=== PATIENT | male | born 1985 | race Caucasian/White ===

== ENCOUNTER 2016-09-14 08:29 | Inpatient (IN) | payer OTHER ==
[2016-09-14 09:00] VITALS: BMI 31.6
--- NOTE | 2016-09-14 12:27 | HP ---
COWS - Scale Resting Pulse: 0= [place] 80 or Below Sweatin=Flushed/Facial Moisture Restless Observation: 3= Extraneous Movement Pupil Size: 2= Moderately Dilated Bone or Joint Aches: 2= Severe Diffuse Aches Runny Nose/ Eye Tearin= Runny Nose/Eyes GI Upset > 30mins: 3= Vomiting/Diarrhea Tremor Observation: 2= Slight Tremor Visible Yawning Observation: 2= >3x During Session Anxiety or Irritability: 2=Irritable/Anxious Goose Flesh Skin: 0=Smooth Skin COWS Score: 20 CIWA Score - CIWA Score Nausea/Vomitin Muscle Tremors: 3 Anxiety: 3 Agitation: 3 Paroxysmal Sweats: 2 Orientation: 0-Oriented Tacttile Disturbances: 2-Mild Itch/Numbness/Burn Auditory Disturbances: 2-Mild Harshness/Frighten Visual Disturbances: 2-Mild Sensitivity Headache: 2-Mild CIWA-Ar Total Score: 22 Admission ROS BHS - HPI Chief Complaint: i need help to stop using heroin and xanax Allergies/Adverse Reactions: Allergies Allergy/AdvReac Type Severity Reaction Status Date / Time No Known Allergies Allergy Verified 09/14/16 10:21 History of Present Illness: this 31 years old male with heroin and xanax dependence,withdrawal symptom,last detox 02/01/16 in [place] nicotine dependence longest period sobriety 4 months Exam Limitations: No Limitations - Ebola screening Have you traveled outside of the country in the last 21 days: No Have you had contact with anyone from an Ebola affected area: No Have you been sick,other than usual withdrawal symptoms: No - Review of Systems Constitutional: Chills, Diaphoresis, Loss of Appetite, Malaise, Night Sweats, Changes in sleep, Weakness EENT: reports: Tearing, Nose Congestion Respiratory: reports: No Symptoms reported Cardiac: reports: No Symptoms Reported GI: reports: Diarrhea, Nausea, Vomiting, Abdominal cramping : reports: No Symptoms Reported Musculoskeletal: reports: Back Pain, Joint Pain, Muscle Pain, Joint Stiffness Integumentary: reports: Dryness Neuro: reports: Headache, Tremors Endocrine: reports: No Symptoms Reported Hematology: reports: No Symptoms Reported Psychiatric: reports: No Sypmtoms Reported Other Systems: Reviewed and Negative Patient History - Patient Medical History Hx Anemia: No Hx Asthma: No Hx Chronic Obstructive Pulmonary Disease (COPD): No Hx Cancer: No Hx Cardiac Disorders: No Hx Congestive Heart Failure: No Hx Hypertension: No Hx Pacemaker: No HX Cerebrovascular Accident: No Hx Seizures: No Hx Dementia: No Hx Diabetes: No Hx Gastrointestinal Disorders: No Hx Liver Disease: No Hx Genitourinary Disorders: No Hx Sexually Transmitted Disorders: No Hx Renal Disease (ESRD): No Hx Thyroid Disease: No Hx Human Immunodeficiency Virus (HIV): No (11/02 LAST NEGATIVE) Hx Hepatitis C: No Hx Depression: No Hx Suicide Attempt: No Hx Bipolar Disorder: No Hx Schizophrenia: No Other Medical History: no suicidal,no hmidcidal - Patient Surgical History Past Surgical History: Yes Hx Neurologic Surgery: No Hx Cataract Extraction: No Hx Cardiac Surgery: No Hx Lung Surgery: No Hx Breast Surgery: No Hx Breast Biopsy: No Hx Abdominal Surgery: No Hx Appendectomy: No Hx Cholecystectomy: No Hx Genitourinary Surgery: No Hx Section: No Hx Orthopedic Surgery: No Other Surgical History: COLONOSCOPY FOR LOWER GI BLEEDING 2006 Anesthesia Reaction: No - PPD History Previous Implant?: Yes Documented Results: Negative w/o proof Implanted On Prior [facility] Admission?: No Date: 05/22/15 Results: 0 MM PPD to be Administered?: Yes - Smoking Cessation Smoking history: Current every day smoker Aproximately how many cigarettes per day: 15 Hx Chewing Tobacco Use: No Initiated information on smoking cessation: Yes 'Breaking Loose' booklet given: 09/14/16 - Substance & Tx. History Hx Alcohol Use: No Hx Substance Use: Yes Substance Use Type: Heroin, Tranquilizers Hx Substance Use Treatment: Yes (02/02 in [place]) - Substances Abused Heroin Route: Injection Frequency: Daily Amount used: 10 BAGS Age of first use: 28 Date of Last Use: 09/14/16 Diazepam Route: Oral Frequency: Daily Amount used: 20 MG Age of first use: 27 Date of Last Use: 09/14/16 Family Disease History - Family Disease History Family Disease History: Diabetes: Grandparent, Heart Disease: Father (HTN, ALCOHOLIC,NEPHRECTOMY), [place]: Mother (lung) Admission Physical Exam BHS - Vital Signs Vital Signs: Vital Signs - 24 hr 09/14/16 08:57 Temperature 97.4 F L Pulse Rate 56 L Respiratory 16 Rate Blood Pressure 105/63 - Physical General Appearance: Yes: Moderate Distress, Tremorous, Irritable, Sweating, Anxious HEENTM: Yes: Hearing grossly Normal, Normal ENT Inspection, Nasal Congestion Respiratory: Yes: Lungs Clear, Normal Breath Sounds, No Respiratory Distress Neck: Yes: Within Normal Limits Breast: Yes: Within Normal Limits Cardiology: Yes: Within Normal Limits, Regular Rhythm, Regular Rate, S1, S2 Abdominal: Yes: Within Normal Limits, Normal Bowel Sounds, Non Tender, Flat, Soft Genitourinary: Yes: Within Normal Limits Back: Yes: Muscle Spasm Musculoskeletal: Yes: full range of Motion, Back pain, Joint Stiffness, Muscle Pain Extremities: Yes: Normal Range of Motion, Tremors Neurological: Yes: 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 NML intact, Fully Oriented, Alert, Motor Strength 5/5 Integumentary: Yes: Dry Lymphatic: Yes: Within Normal Limits - Diagnostic (1) Nicotine dependence Current Visit: No Status: Acute Qualifiers: Nicotine product type: cigarettes Substance use status: uncomplicated Qualified Code(s): F17.210 - Nicotine dependence, cigarettes, uncomplicated (2) Opioid dependence with withdrawal Current Visit: No Status: Acute (3) Uncomplicated sedative, hypnotic or anxiolytic withdrawal Current Visit: No Status: Acute Cleared for Admission [facility] - Detox or Rehab [facility] Level of Care: Medically Managed Detox Regimen/Protocol: Methadone/Valium [facility] Breath Alcohol Content Breath Alcohol Content: 0 Urine Drug Screen - Results Drug Screen Negative: No Urine Drug Screen Results: OPI-Opiates, BZO-Benzodiazepines, MTD-Methadone, OXY- Oxycodone
[2016-09-14] MEDS ORDERED: MAGNESIUM HYDROX 2400MG/30ML ORAL SUSPENSION 30 ML CUP PO PRN (12:37)
[2016-09-14] MEDS ORDERED: MAG HYDROX/AL HYDROX/SIMETH 30 ML UNIT-DOSE CUP PO PRN (12:37)
[2016-09-14] MEDS ORDERED: MAGNESIUM CITRATE 300 ML BOTTLE PO PRN (12:37)
[2016-09-14] MEDS ORDERED: P-EPHED 60MG/TRIPROLIDI 2.5MG TABLET PO PRN (12:37)
[2016-09-14] MEDS ORDERED: guaiFENesin/D-METHORPHAN HB 10 ML UNIT-DOSE CUPS PO PRN (12:37)
[2016-09-14] MEDS ORDERED: LOPERAMIDE HCL 2 MG CAPSULE PO PRN (12:37)
[2016-09-14] MEDS ORDERED: hydrOXYzine PAMOATE 50 MG CAPSULE (FP) PO PRN (12:37)
[2016-09-14] MEDS ORDERED: IBUPROFEN 400 MG TABLET (FP) PO PRN (12:37)
[2016-09-14] MEDS ORDERED: ACETAMINOPHEN 325 MG TABLET (FP) PO PRN (12:37)
[2016-09-14] MEDS ORDERED: MENTHOL/PHENOL 1 EACH UD MM PRN (12:37)
[2016-09-14] MEDS ORDERED: NICOTINE POLACRILEX 2 MG GUM BUC PRN (12:37)
[2016-09-14] MEDS ORDERED: diazePAM 5 MG TABLET PO ONE (12:44)
[2016-09-14] MEDS ORDERED: METHADONE HCL 10 MG TABLET (FOR DETOX USE ONLY) PO ONE ×2 (12:46→23:00)
[2016-09-14] MEDS: NICOTINE 21 MG/24 HOURS TOPICAL PATCH TD SCH (13:53)
[2016-09-14] MEDS: CYCLOBENZAPRINE HCL 10 MG TABLET (FP) PO PRN (13:54)
[2016-09-14] MEDS: diazePAM 5 MG TABLET PO SCH ×2 (14:28→22:31)
[2016-09-14] MEDS: diazePAM 5 MG TABLET PO PRN (16:37)
[2016-09-14 16:59] LABS: URINE APPEARANCE CLEAR; URINE BILIRUBIN NEGATIVE (NEGATIVE); URINE BLOOD NEGATIVE (NEGATIVE); URINE COLOR YELLOW; URINE GLUCOSE (UA) NEGATIVE (NEGATIVE); URINE KETONE NEGATIVE (NEGATIVE); URINE LEUK ESTERASE NEGATIVE (NEGATIVE); URINE NITRITE NEGATIVE (NEGATIVE); URINE PROTEIN NEGATIVE (NEGATIVE); URINE UROBILINOGEN NEGATIVE E.U./dl (0.2-1.0)
[2016-09-14] MEDS: THIAMINE HCL 100 MG TABLET (FP) PO SCH (22:30)
[2016-09-14] MEDS: cloNIDine HCL 0.1 MG TABLET PO SCH (22:31)
[2016-09-15] MEDS: diazePAM 5 MG TABLET PO SCH ×3 (05:19→22:37)
[2016-09-15] MEDS: CYCLOBENZAPRINE HCL 10 MG TABLET (FP) PO PRN (05:19)
[2016-09-15] MEDS: diazePAM 5 MG TABLET PO PRN ×3 (08:49→23:51)
[2016-09-15] MEDS ORDERED: METHADONE HCL 10 MG TABLET (FOR DETOX USE ONLY) PO SCH (10:00)
[2016-09-15 10:06] LABS: HIV 1 & 2 AB NEGATIVE; HIV 1 AGp24 NEGATIVE
[2016-09-15] MEDS: NICOTINE 21 MG/24 HOURS TOPICAL PATCH TD SCH (10:44)
[2016-09-15] MEDS: cloNIDine HCL 0.1 MG TABLET PO SCH ×2 (10:44→22:36)
[2016-09-15] MEDS: PRENATAL VITAMINS W/ FOLIC ACID TABLET (FP) PO SCH (10:44)
[2016-09-15 11:13] LABS: ALBUMIN 4.2 g/dl (3.4-5.0); ANION GAP 9 (8-16); CALCIUM 9.2 mg/dL (8.5-10.1); CO2 31 mmol/L (21-32); GLUCOSE,RANDOM 110 mg/dL (74-106); MCH 30.2 pg (25.7-33.7); MCHC 34.4 g/dl (32.0-35.9); MEAN CELL VOLUME 87.8 fl (80-96); MEAN PLT VOLUME 8.3 fl (7.5-11.1); PLATELET COUNT 138 K/MM3 (134-434); WHITE BLOOD COUNT 5.4 K/mm3 (4.0-10.0)
[2016-09-15 11:17] LABS: ALK PHOS 68 U/L (45-117); BILIRUBIN,TOTAL 0.7 mg/dL (0.2-1.0); COCKROFT - GAULT 122.45; CREATININE 1.2 mg/dL (0.7-1.3); SGOT/AST 28 U/L (15-37); SGPT/ALT 35 U/L (12-78); TOT PROT 7.1 g/dl (6.4-8.2)
--- NOTE | 2016-09-15 11:26 | EKG ---
Test Reason : Blood Pressure : / mmHG Vent. Rate : 052 BPM Atrial Rate : 052 BPM P-R Int : 174 ms QRS Dur : 086 ms QT Int : 432 ms P-R-T Axes : 032 -08 021 degrees QTc Int : 401 ms SINUS BRADYCARDIA WITH SINUS ARRHYTHMIA OTHERWISE NORMAL ECG NO PREVIOUS ECGS AVAILABLE Confirmed by RUDOLPH STACK, VENITA ([id number]) on 09/15/2016 11:25:50 AM Referred By: Moody Yancey Confirmed By:VENITA GALDAMEZ MD
--- NOTE | 2016-09-15 16:16 | PN ---
S CIWA - CIWA Score Nausea/Vomitin Muscle Tremors: 4-Moderate,w/Arms Extend Anxiety: 4-Mod. Anxious/Guarded Agitation: 1-Slight > Activity Paroxysmal Sweats: 3 Orientation: 0-Oriented Tacttile Disturbances: 0-None Auditory Disturbances: 1-Very Mild Visual Disturbances: 2-Mild Sensitivity Headache: 0-None Present CIWA-Ar Total Score: 18 S COWS - Scale Resting Pulse: 0= [place] 80 or Below Sweatin= Chills/Flushing Restless Observation: 1= Difficult to Sit Still Pupil Size: 0= Normal to Room Light Bone or Joint Aches: 2= Severe Diffuse Aches Runny Nose/ Eye Tearin= Runny Nose/Eyes GI Upset > 30mins: 1= Stomach Cramp Tremor Observation of Outstretched Hands: 2= Slight Tremor Visible Yawning Observation: 2= >3x During Session Anxiety or Irritability: 2=Irritable/Anxious Goose Flesh Skin: 0=Smooth Skin COWS Score: 13 S Progress Note (SOAP) Subjective: Stomach Cramping, Sweating, Body aches. Objective: PT. A & O X 3. 09/15/16 16:15 Vital Signs Temperature 96.0 F L 09/15/16 13:51 Pulse Rate 61 09/15/16 13:51 Respiratory Rate 18 09/15/16 13:51 Blood Pressure 97/66 09/15/16 13:51 O2 Sat by Pulse Oximetry (%) Laboratory Last Values WBC 5.4 K/mm3 (4.0-10.0) 09/15/16 06:05 RBC 4.70 M/mm3 (4.00-5.60) 09/15/16 06:05 Hgb 14.2 GM/dL (11.7-16.9) 09/15/16 06:05 Hct 41.2 % (35.4-49) 09/15/16 06:05 MCV 87.8 fl (80-96) 09/15/16 06:05 MCHC 34.4 g/dl (32.0-35.9) 09/15/16 06:05 RDW 13.0 % (11.9-15.9) 09/15/16 06:05 Plt Count 138 K/MM3 (134-434) 09/15/16 06:05 MPV 8.3 fl (7.5-11.1) 09/15/16 06:05 Sodium 139 mmol/L (136-145) 09/15/16 06:05 Potassium 4.3 mmol/L (3.5-5.1) 09/15/16 06:05 Chloride 99 mmol/L (98-107) 09/15/16 06:05 Carbon Dioxide 31 mmol/L (21-32) 09/15/16 06:05 Anion Gap 9 (8-16) 09/15/16 06:05 BUN 24 mg/dL (7-18) H D 09/15/16 06:05 Creatinine 1.2 mg/dL (0.7-1.3) 09/15/16 06:05 Creat Clearance w eGFR > 60 (>60) 09/15/16 06:05 Random Glucose 110 mg/dL (74-106) H D 09/15/16 06:05 Calcium 9.2 mg/dL (8.5-10.1) 09/15/16 06:05 Total Bilirubin 0.7 mg/dL (0.2-1.0) 09/15/16 06:05 AST 28 U/L (15-37) D 09/15/16 06:05 ALT 35 U/L (12-78) D 09/15/16 06:05 Alkaline Phosphatase 68 U/L (45-117) 09/15/16 06:05 Total Protein 7.1 g/dl (6.4-8.2) 09/15/16 06:05 Albumin 4.2 g/dl (3.4-5.0) 09/15/16 06:05 Urine Color Yellow 09/14/16 14:00 Urine Appearance Clear 09/14/16 14:00 Urine pH 6.0 (5.0-8.0) D 09/14/16 14:00 Ur Specific [place] 1.023 (1.001-1.035) 09/14/16 14:00 Urine Protein Negative (NEGATIVE) 09/14/16 14:00 Urine Glucose (UA) Negative (NEGATIVE) 09/14/16 14:00 Urine Ketones Negative (NEGATIVE) 09/14/16 14:00 Urine Blood Negative (NEGATIVE) 09/14/16 14:00 Urine Nitrite Negative (NEGATIVE) 09/14/16 14:00 Urine Bilirubin Negative (NEGATIVE) 09/14/16 14:00 Urine Urobilinogen Negative E.U./dl (0.2-1.0) 09/14/16 14:00 Ur Leukocyte Esterase Negative (NEGATIVE) 09/14/16 14:00 RPR Titer Nonreactive (NONREACTIVE) 09/15/16 06:05 Hepatitis C Antibody 0.1 s/co ratio (0.0-0.9) 09/14/16 12:00 HIV 1&2 Antibody Screen Negative 09/14/16 10:30 HIV P24 Antigen Negative 09/14/16 10:30 LABS NOTED. Assessment: 09/15/16 16:15 WITHDRAWAL SYMPTOMS. Plan: CONTINUE DETOX. ADVISED PATIENT TO FOLLOW-UP WITH STUDENT SUCCESS COUNSELOR / REHAB MEDICAL PROVIDER AFTER DISCHARGE FROM DETOX FOR GENERAL MEDICAL ASSESSMENT AND FOR ABNORMAL ADMISSION LAB VALUES.
[2016-09-15] MEDS: THIAMINE HCL 100 MG TABLET (FP) PO SCH (22:36)
[2016-09-15] MEDS: diphenhydrAMINE HCL 50 MG CAPSULE PO PRN (22:37)
[2016-09-16] MEDS: diazePAM 5 MG TABLET PO PRN ×3 (05:38→17:57)
[2016-09-16] MEDS: CYCLOBENZAPRINE HCL 10 MG TABLET (FP) PO PRN (05:38)
[2016-09-16] MEDS ORDERED: METHADONE HCL 5 MG TABLET (FOR DETOX USE ONLY) PO SCH (10:00)
[2016-09-16] MEDS: diazePAM 5 MG TABLET PO SCH ×2 (10:31→22:40)
[2016-09-16] MEDS: cloNIDine HCL 0.1 MG TABLET PO SCH ×2 (10:31→22:39)
[2016-09-16] MEDS: PRENATAL VITAMINS W/ FOLIC ACID TABLET (FP) PO SCH (10:31)
[2016-09-16] MEDS: NICOTINE 21 MG/24 HOURS TOPICAL PATCH TD SCH (10:31)
--- NOTE | 2016-09-16 15:41 | PN ---
S CIWA - CIWA Score Nausea/Vomitin Muscle Tremors: 4-Moderate,w/Arms Extend Anxiety: 4-Mod. Anxious/Guarded Agitation: 2 Paroxysmal Sweats: No Perspiration Orientation: 0-Oriented Tacttile Disturbances: 1-Very Mild Itch/Numbness Auditory Disturbances: 0-None Visual Disturbances: 0-None Headache: 2-Mild CIWA-Ar Total Score: 16 BHS COWS - Scale Resting Pulse: 0= [place] 80 or Below Sweatin=Flushed/Facial Moisture Restless Observation: 3= Extraneous Movement Pupil Size: 0= Normal to Room Light Bone or Joint Aches: 2= Severe Diffuse Aches Runny Nose/ Eye Tearin= Runny Nose/Eyes GI Upset > 30mins: 1= Stomach Cramp Tremor Observation of Outstretched Hands: 2= Slight Tremor Visible Yawning Observation: 0= None Anxiety or Irritability: 2=Irritable/Anxious Goose Flesh Skin: 0=Smooth Skin COWS Score: 14 BHS Progress Note (SOAP) Subjective: Anxious, sweating, chills, tremor, aching in legs Objective: 09/16/16 15:39 Last Vital Signs Temp Pulse Resp BP Pulse Ox 98.1 F 69 19 110/73 09/16/16 13:21 09/16/16 13:21 09/16/16 13:21 09/16/16 13:21 Laboratory Tests 09/14/16 09/14/16 09/14/16 10:30 12:00 14:00 WBC RBC Hgb Hct MCV MCHC RDW Plt Count MPV Sodium Potassium Chloride Carbon Dioxide Anion Gap BUN Creatinine Creat Clearance w eGFR Random Glucose Calcium Total Bilirubin AST ALT Alkaline Phosphatase Total Protein Albumin Urine Color Yellow Urine Appearance Clear Urine pH 6.0 D Ur Specific [place] 1.023 Urine Protein Negative Urine Glucose (UA) Negative Urine Ketones Negative Urine Blood Negative Urine Nitrite Negative Urine Bilirubin Negative Urine Urobilinogen Negative Ur Leukocyte Esterase Negative RPR Titer Hepatitis C Antibody 0.1 HIV 1&2 Antibody Screen Negative HIV P24 Antigen Negative 09/15/16 09/15/16 09/15/16 06:05 06:05 06:05 WBC 5.4 RBC 4.70 Hgb 14.2 Hct 41.2 MCV 87.8 MCHC 34.4 RDW 13.0 Plt Count 138 MPV 8.3 Sodium 139 Potassium 4.3 Chloride 99 Carbon Dioxide 31 Anion Gap 9 BUN 24 H D Creatinine 1.2 Creat Clearance w eGFR > 60 Random Glucose 110 H D Calcium 9.2 Total Bilirubin 0.7 AST 28 D ALT 35 D Alkaline Phosphatase 68 Total Protein 7.1 Albumin 4.2 Urine Color Urine Appearance Urine pH Ur Specific [place] Urine Protein Urine Glucose (UA) Urine Ketones Urine Blood Urine Nitrite Urine Bilirubin Urine Urobilinogen Ur Leukocyte Esterase RPR Titer Nonreactive Hepatitis C Antibody HIV 1&2 Antibody Screen HIV P24 Antigen Labs noted: BUN 24 Assessment: 09/16/16 15:40 Withdrawal symptoms Noted with azotemia Plan: Continue detox Azotemia: encouraged to drink lots of water
[2016-09-16] MEDS: THIAMINE HCL 100 MG TABLET (FP) PO SCH (22:39)
[2016-09-16] MEDS: diphenhydrAMINE HCL 50 MG CAPSULE PO PRN (22:39)
[2016-09-17] MEDS: diazePAM 5 MG TABLET PO PRN (05:50)
[2016-09-17] MEDS: CYCLOBENZAPRINE HCL 10 MG TABLET (FP) PO PRN (05:50)
[2016-09-17 06:49] VITALS: BP 95/70; PULSE 69; TEMP 95.2
--- NOTE | 2016-09-17 12:55 | DS ---
[facility] Detox Discharge Summary Admission Date: 09/14/16 Discharge Date: 09/17/16 - History Present History: Opioid Dependence, Sedative Dependence Pertinent Past History: Denies - Physical Exam Results Vital Signs: Vital Signs Temperature 95.2 F L 09/17/16 06:49 Pulse Rate 69 09/17/16 06:49 Respiratory Rate 16 09/17/16 06:49 Blood Pressure 95/70 09/17/16 06:49 O2 Sat by Pulse Oximetry (%) Pertinent Admission Physical Exam Findings: Withdrawal sx. Laboratory Tests 09/14/16 09/14/16 09/14/16 10:30 12:00 14:00 WBC RBC Hgb Hct MCV MCHC RDW Plt Count MPV Sodium Potassium Chloride Carbon Dioxide Anion Gap BUN Creatinine Creat Clearance w eGFR Random Glucose Calcium Total Bilirubin AST ALT Alkaline Phosphatase Total Protein Albumin Urine Color Yellow Urine Appearance Clear Urine pH 6.0 D Ur Specific [place] 1.023 Urine Protein Negative Urine Glucose (UA) Negative Urine Ketones Negative Urine Blood Negative Urine Nitrite Negative Urine Bilirubin Negative Urine Urobilinogen Negative Ur Leukocyte Esterase Negative RPR Titer Hepatitis C Antibody 0.1 HIV 1&2 Antibody Screen Negative HIV P24 Antigen Negative 09/15/16 09/15/16 09/15/16 06:05 06:05 06:05 WBC 5.4 RBC 4.70 Hgb 14.2 Hct 41.2 MCV 87.8 MCHC 34.4 RDW 13.0 Plt Count 138 MPV 8.3 Sodium 139 Potassium 4.3 Chloride 99 Carbon Dioxide 31 Anion Gap 9 BUN 24 H D Creatinine 1.2 Creat Clearance w eGFR > 60 Random Glucose 110 H D Calcium 9.2 Total Bilirubin 0.7 AST 28 D ALT 35 D Alkaline Phosphatase 68 Total Protein 7.1 Albumin 4.2 Urine Color Urine Appearance Urine pH Ur Specific [place] Urine Protein Urine Glucose (UA) Urine Ketones Urine Blood Urine Nitrite Urine Bilirubin Urine Urobilinogen Ur Leukocyte Esterase RPR Titer Nonreactive Hepatitis C Antibody HIV 1&2 Antibody Screen HIV P24 Antigen labs noted - Treatment Patient has Accepted a Rehab Referral to: [facility] meetings - Medication Discharge Medications: Ambulatory Orders NK [No Known Home Medication] 05/20/15 - Diagnosis (1) Nicotine dependence Status: Acute Qualifiers: Nicotine product type: cigarettes Substance use status: uncomplicated Qualified Code(s): F17.210 - Nicotine dependence, cigarettes, uncomplicated (2) Opioid dependence with withdrawal Status: Acute (3) Uncomplicated sedative, hypnotic or anxiolytic withdrawal Status: Acute - AMA Did Patient Leave Against Medical Advice: Yes
[2016-09-18] MEDS ORDERED: METHADONE HCL 10 MG TABLET (FOR DETOX USE ONLY) PO SCH (10:00)
[2016-09-18] MEDS ORDERED: diazePAM 5 MG TABLET PO SCH (10:00)
[2016-09-19] MEDS ORDERED: METHADONE HCL 5 MG TABLET (FOR DETOX USE ONLY) PO SCH (06:00)
== END 2016-09-17 09:10 | disposition left against medical advice (07) | DRG 894 ==
LOC: YASAS 08:29 → Y3N 12:04
PROVIDERS: ADMIT Internal Medicine; ATTEND Internal Medicine
PROC: HZ2ZZZZ Detoxification Services for Substance Abuse Treatment (ICD-10-PCS; principal; 2016-09-17)
DX: F11.23 Opioid dependence with withdrawal (principal); F13.230 Sedative, hypnotic or anxiolytic dependence with withdrawal, uncomplicated; F17.210 Nicotine dependence, cigarettes, uncomplicated
CPT/HCPCS: 36415; 80053; 81003; 85027; 86593; 87389; 93005; 93010

== ENCOUNTER 2018-07-08 08:35 | Inpatient (IN) | payer OTHER ==
[2018-07-08 09:00] VITALS: BMI 30.4
--- NOTE | 2018-07-08 09:01 | HP ---
COWS - Scale Resting Pulse: 0= [place] 80 or Below Sweatin= Chills/Flushing Restless Observation: 3= Extraneous Movement Pupil Size: 1= Pupils >than Normal Bone or Joint Aches: 2= Severe Diffuse Aches Runny Nose/ Eye Tearin= Runny Nose/Eyes GI Upset > 30mins: 2= Nausea/Diarrhea Tremor Observation: 2= Slight Tremor Visible Yawning Observation: 1= 1-2x During Session Anxiety or Irritability: 2=Irritable/Anxious Goose Flesh Skin: 0=Smooth Skin COWS Score: 16 CIWA Score Nausea/Vomitin Muscle Tremors: 3 Anxiety: 3 Agitation: 2 Paroxysmal Sweats: 1-Minimal Palms Moist Orientation: 0-Oriented Tacttile Disturbances: 1-Very Mild Itch/Numbness Auditory Disturbances: 1-Very Mild Visual Disturbances: 0-None Headache: 2-Mild CIWA-Ar Total Score: 15 - Admission Criteria [facility] Guidelines: Admission for Medically Managed Detox: Requires at least one of the followin. CIWA greater than 12 2. Seizures within the past 24 hours 3. Delirium tremens within the past 24 hours 4. Hallucinations within the past 24 hours 5. Acute intervention needed for co occurring medical disorder 6. Acute intervention needed for co occurring psychiatric disorder 7. Severe withdrawal that cannot be handled at a lower level of care (continued vomiting, continued diarrhea, abnormal vital signs) requiring intravenous medication and/or fluids 8. Patient presents the following: CIWA greater than 12 Admission Criteria Met: Admission criteria met Admission ROS S - [facility] Chief Complaint: i need help to stop using heroin and xanax Allergies/Adverse Reactions: Allergies Allergy/AdvReac Type Severity Reaction Status Date / Time No Known Allergies Allergy Verified 07/08/18 09:40 History of Present Illness: this 33 years old male with heroin and xanax dependence seeking detox, withdrawal symptom,last treatment in [place] in 10.18 multiple admissions several times in detox and rehab nicotine dependence weight loss longest period of sobriety 6 months Exam Limitations: No Limitations - Ebola screening Have you traveled outside of the country in the last 21 days: No Have you had contact with anyone from an Ebola affected area: No Do you have a fever: No - Review of Systems Constitutional: Chills, Loss of Appetite, Malaise, Night Sweats, Changes in sleep, Weakness, Unintentional Wgt. Loss EENT: reports: Tearing, Nose Congestion Respiratory: reports: No Symptoms reported Cardiac: reports: No Symptoms Reported GI: reports: Diarrhea, Nausea, Abdominal cramping : reports: No Symptoms Reported Musculoskeletal: reports: Back Pain, Joint Pain, Muscle Pain, Neck Pain Integumentary: reports: Dryness Neuro: reports: Headache, Tremors Endocrine: reports: No Symptoms Reported Hematology: reports: No Symptoms Reported Psychiatric: reports: No Sypmtoms Reported, Judgement Intact, Mood/Affect Appropiate, Orientated x3 Other Systems: Reviewed and Negative Patient History - Patient Medical History Hx Anemia: No Hx Asthma: No Hx Chronic Obstructive Pulmonary Disease (COPD): No Hx Cancer: No Hx Cardiac Disorders: No Hx Congestive Heart Failure: No Hx Hypertension: No Hx Pacemaker: No HX Cerebrovascular Accident: No Hx Seizures: No Hx Dementia: No Hx Diabetes: No Hx Gastrointestinal Disorders: No Hx Liver Disease: No Hx Genitourinary Disorders: No Hx Sexually Transmitted Disorders: No Hx Renal Disease (ESRD): No Hx Thyroid Disease: No Hx Human Immunodeficiency Virus (HIV): No (01/04 negtive) Hx Hepatitis C: No Hx Depression: No Hx Suicide Attempt: No Hx Bipolar Disorder: No Hx Schizophrenia: No Other Medical History: no suicidal,no homicidal - Patient Surgical History Past Surgical History: Yes Hx Neurologic Surgery: No Hx Cataract Extraction: No Hx Cardiac Surgery: No Hx Lung Surgery: No Hx Breast Surgery: No Hx Breast Biopsy: No Hx Abdominal Surgery: No Hx Appendectomy: No Hx Cholecystectomy: No Hx Genitourinary Surgery: No Hx Section: No Hx Orthopedic Surgery: No Other Surgical History: COLONOSCOPY FOR LOWER GI BLEEDING 2006 Anesthesia Reaction: No - PPD History Previous Implant?: Yes Documented Results: Negative w/o proof Date: 09/16/16 Results: 0 MM PPD to be Administered?: Yes - Smoking Cessation Smoking history: Current every day smoker Have you smoked in the past 12 months: Yes Aproximately how many cigarettes per day: 10 Hx Chewing Tobacco Use: No Initiated information on smoking cessation: Yes 'Breaking Loose' booklet given: 07/08/18 - Substance & Tx. History Hx Alcohol Use: No Hx Substance Use: Yes Substance Use Type: Heroin, Tranquilizers Hx Substance Use Treatment: Yes (in [place] in 03/06) - Substances Abused Heroin Route: Injection Frequency: Daily Amount used: 5 bags Age of first use: 28 Date of Last Use: 07/08/18 Alprazolam (Xanax) Route: Oral Frequency: 3-6 times per week Amount used: 4 mgs Age of first use: 25 Date of Last Use: 07/06/18 Family Disease History - Family Disease History Family Disease History: Diabetes: Grandparent, Heart Disease: Father (HTN, ALCOHOLIC,NEPHRECTOMY), [place]: Mother (lung) Admission Physical Exam [facility] - Vital Signs Vital Signs: Vital Signs Temperature 97 F L 07/08/18 08:58 Pulse Rate 70 07/08/18 08:58 Respiratory Rate 17 07/08/18 08:58 Blood Pressure 107/67 07/08/18 08:58 O2 Sat by Pulse Oximetry (%) - Physical General Appearance: Yes: Moderate Distress, Tremorous, Irritable, Sweating, Anxious HEENTM: Yes: Normal ENT Inspection, ROHAN, Pharynx Normal Respiratory: Yes: Lungs Clear, Normal Breath Sounds, No Respiratory Distress Neck: Yes: Within Normal Limits, Supple, Trachea in good position Breast: Yes: Within Normal Limits Cardiology: Yes: Within Normal Limits, Regular Rhythm, Regular Rate, S1, S2 Abdominal: Yes: Within Normal Limits, Normal Bowel Sounds, Non Tender, Soft Genitourinary: Yes: Within Normal Limits Back: Yes: Normal Inspection, Muscle Spasm Musculoskeletal: Yes: full range of Motion, Back pain, Muscle Pain Extremities: Yes: Within Normal Limits, Tremors 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, Fully Oriented, Alert, Motor Strength 5/5 Integumentary: Yes: Dry, Track Dowell - Diagnostic (1) Opioid dependence with withdrawal Current Visit: No Status: Acute (2) Nicotine dependence Current Visit: No Status: Acute Qualifiers: Nicotine product type: cigarettes Substance use status: uncomplicated Qualified Code(s): F17.210 - Nicotine dependence, cigarettes, uncomplicated (3) Uncomplicated sedative, hypnotic or anxiolytic withdrawal Current Visit: No Status: Acute (4) Weight loss Current Visit: Yes Status: Acute (5) IVDU (intravenous drug user) Current Visit: Yes Status: Acute Cleared for Admission S - Detox or Rehab S Level of Care: Medically Managed Detox Regimen/Protocol: Methadone/Valium S Breath Alcohol Content Breath Alcohol Content: 0 Inpatient Rehab Admission - Rehab Decision to Admit Inpatient rehab admission?: No
[2018-07-08] MEDS ORDERED: P-EPHED 60MG/TRIPROLIDI 2.5MG TABLET PO PRN (09:17)
[2018-07-08] MEDS ORDERED: MAGNESIUM CITRATE 300 ML BOTTLE PO PRN (09:17)
[2018-07-08] MEDS ORDERED: MAG HYDROX/AL HYDROX/SIMETH 30 ML UNIT-DOSE CUP PO PRN (09:17)
[2018-07-08] MEDS ORDERED: hydrOXYzine PAMOATE 50 MG CAPSULE (FP) PO PRN (09:17)
[2018-07-08] MEDS ORDERED: MAGNESIUM HYDROX 2400MG/30ML ORAL SUSPENSION 30 ML CUP PO PRN (09:17)
[2018-07-08] MEDS ORDERED: guaiFENesin/D-METHORPHAN HB 10 ML UNIT-DOSE CUPS PO PRN (09:17)
[2018-07-08] MEDS ORDERED: MENTHOL/PHENOL 1 EACH UD MM PRN (09:17)
[2018-07-08] MEDS ORDERED: NICOTINE POLACRILEX 2 MG GUM BC PRN (09:17)
[2018-07-08] MEDS ORDERED: LOPERAMIDE HCL 2 MG CAPSULE PO PRN (09:17)
[2018-07-08] MEDS ORDERED: ACETAMINOPHEN 325 MG TABLET (FP) PO PRN (09:17)
[2018-07-08] MEDS ORDERED: IBUPROFEN 400 MG TABLET (FP) PO PRN (09:17)
[2018-07-08] MEDS ORDERED: CYCLOBENZAPRINE HCL 10 MG TABLET (FP) PO PRN (09:19)
[2018-07-08] MEDS ORDERED: diazePAM 5 MG TABLET PO ONE (10:45)
[2018-07-08] MEDS ORDERED: METHADONE HCL 10 MG TABLET (FOR DETOX USE ONLY) PO ONE ×2 (10:45→23:00)
[2018-07-08] MEDS: cloNIDine HCL 0.1 MG TABLET PO SCH ×2 (11:00→22:08)
[2018-07-08] MEDS: PRENATAL VITAMINS W/ FOLIC ACID TABLET (FP) PO SCH (11:01)
[2018-07-08] MEDS: NICOTINE 21 MG/24 HOURS TOPICAL PATCH TD SCH (11:01)
[2018-07-08] MEDS: diazePAM 5 MG TABLET PO SCH ×2 (14:35→22:08)
[2018-07-08] MEDS: diazePAM 5 MG TABLET PO PRN (18:00)
[2018-07-08] MEDS ORDERED: MELATONIN 5 MG TABLETS PO PRN (22:00)
[2018-07-08] MEDS: THIAMINE HCL 100 MG TABLET (FP) PO SCH (22:08)
[2018-07-09] MEDS: diazePAM 5 MG TABLET PO SCH ×3 (05:37→22:07)
[2018-07-09] MEDS: diazePAM 5 MG TABLET PO PRN ×2 (09:08→16:52)
[2018-07-09] MEDS ORDERED: METHADONE HCL 10 MG TABLET (FOR DETOX USE ONLY) PO SCH (10:00)
[2018-07-09] MEDS: cloNIDine HCL 0.1 MG TABLET PO SCH ×2 (10:06→22:06)
[2018-07-09] MEDS: PRENATAL VITAMINS W/ FOLIC ACID TABLET (FP) PO SCH (10:06)
[2018-07-09] MEDS: NICOTINE 21 MG/24 HOURS TOPICAL PATCH TD SCH (10:08)
--- NOTE | 2018-07-09 11:02 | PN ---
[facility] CIWA - CIWA Score Nausea/Vomitin-No Nausea/No Vomiting Muscle Tremors: 3 Anxiety: 3 Agitation: 3 Paroxysmal Sweats: 3 Orientation: 0-Oriented Tacttile Disturbances: 0-None Auditory Disturbances: 0-None Visual Disturbances: 0-None Headache: 0-None Present CIWA-Ar Total Score: 12 BHS COWS - Scale Resting Pulse: 0= [place] 80 or Below Sweatin=Flushed/Facial Moisture Restless Observation: 1= Difficult to Sit Still Pupil Size: 0= Normal to Room Light Bone or Joint Aches: 2= Severe Diffuse Aches Runny Nose/ Eye Tearin= Nasal Congestion GI Upset > 30mins: 0= None Tremor Observation of Outstretched Hands: 2= Slight Tremor Visible Yawning Observation: 2= >3x During Session Anxiety or Irritability: 2=Irritable/Anxious Goose Flesh Skin: 0=Smooth Skin COWS Score: 12 [facility] Progress Note (SOAP) Subjective: sweats shakes interrupted sleep body aches irritable Objective: 07/09/18 11:01 Vital Signs Temperature 97.2 F L 07/09/18 09:26 Pulse Rate 61 07/09/18 09:26 Respiratory Rate 18 07/09/18 09:26 Blood Pressure 129/72 07/09/18 09:26 O2 Sat by Pulse Oximetry (%) labs pending [id number] ambulating no acute distress Assessment: 07/09/18 11:02 withdrawal sx Plan: continue detox increase fluids labs pending
[2018-07-09 11:03] LABS: HEMATOCRIT 42.2 % (35.4-49); MCH 32.9 pg (25.7-33.7); MCHC 35.6 g/dl (32.0-35.9); MEAN CELL VOLUME 92.3 fl (80-96); MEAN PLT VOLUME 8.7 fl (7.5-11.1); PLATELET COUNT 104 K/MM3 (134-434); RBC 4.57 M/mm3 (4.00-5.60); RDW 12.7 % (11.9-15.9); WHITE BLOOD COUNT 5.9 K/mm3 (4.0-10.0)
[2018-07-09 11:18] LABS: ALK PHOS 68 U/L (45-117); ANION GAP 6 MMOL/L (8-16); BILIRUBIN,TOTAL 1.1 mg/dL (0.2-1); BLOOD UREA NITROGEN 19 mg/dL (7-18); CHLORIDE 102 mmol/L (98-107); CO2 30 mmol/L (21-32); CREATININE 1.1 mg/dL (0.55-1.3); GLUCOSE,RANDOM 102 mg/dL (74-106); POTASSIUM 4.4 mmol/L (3.5-5.1); SGOT/AST 21 U/L (15-37); SGPT/ALT 30 U/L (13-61); SODIUM 138 mmol/L (136-145)
[2018-07-09] MEDS: THIAMINE HCL 100 MG TABLET (FP) PO SCH (22:06)
[2018-07-10] MEDS: diazePAM 5 MG TABLET PO PRN ×3 (01:53→16:43)
[2018-07-10] MEDS ORDERED: diazePAM 5 MG TABLET PO SCH (10:00)
[2018-07-10] MEDS ORDERED: METHADONE HCL 5 MG TABLET (FOR DETOX USE ONLY) PO SCH (10:00)
[2018-07-10] MEDS: NICOTINE 21 MG/24 HOURS TOPICAL PATCH TD SCH (10:34)
[2018-07-10] MEDS: PRENATAL VITAMINS W/ FOLIC ACID TABLET (FP) PO SCH (10:34)
[2018-07-10] MEDS: cloNIDine HCL 0.1 MG TABLET PO SCH (10:35)
--- NOTE | 2018-07-10 15:05 | PN ---
S CIWA - CIWA Score Nausea/Vomitin-No Nausea/No Vomiting Muscle Tremors: 2 Anxiety: 2 Agitation: 0-Normal Activity Paroxysmal Sweats: 3 Orientation: 0-Oriented Tacttile Disturbances: 2-Mild Itch/Numbness/Burn Auditory Disturbances: 2-Mild Harshness/Frighten Visual Disturbances: 0-None Headache: 0-None Present CIWA-Ar Total Score: 11 S COWS - Scale Resting Pulse: 1= [place] 81-100 Sweatin= Streaming Sweat Restless Observation: 1= Difficult to Sit Still Pupil Size: 0= Normal to Room Light Bone or Joint Aches: 2= Severe Diffuse Aches Runny Nose/ Eye Tearin= None GI Upset > 30mins: 0= None Tremor Observation of Outstretched Hands: 0= None Yawning Observation: 1= 1-2x During Session Anxiety or Irritability: 2=Irritable/Anxious Goose Flesh Skin: 0=Smooth Skin COWS Score: 11 S Progress Note (SOAP) Subjective: Body Aches, Sweating, Interrupted Sleep. Objective: PATIENT A & O X 3, OBSERVED AMBULATING ON UNIT. IN NO ACUTE DISTRESS. 07/10/18 15:03 Vital Signs Temperature 97.9 F 07/10/18 09:24 Pulse Rate 88 07/10/18 09:24 Respiratory Rate 16 07/10/18 09:24 Blood Pressure 109/74 07/10/18 09:24 O2 Sat by Pulse Oximetry (%) Laboratory Tests 07/09/18 07/09/18 07/09/18 05:45 05:45 05:45 WBC 5.9 RBC 4.57 Hgb 15.0 Hct 42.2 MCV 92.3 MCH 32.9 MCHC 35.6 RDW 12.7 Plt Count 104 L D MPV 8.7 Sodium 138 Potassium 4.4 Chloride 102 Carbon Dioxide 30 Anion Gap 6 L BUN 19 H Creatinine 1.1 Creat Clearance w eGFR > 60 Random Glucose 102 Calcium 9.0 Total Bilirubin 1.1 H AST 21 ALT 30 Alkaline Phosphatase 68 Total Protein 7.0 Albumin 4.0 RPR Titer Nonreactive LABS NOTED. Assessment: 07/10/18 15:04 WITHDRAWAL SYMPTOMS. THROMBOCYTOPENIA. Plan: CONTINUE DETOX. INCREASE DAILY PO FLUID INTAKE.
[2018-07-10 17:27] VITALS: BP 105/60; PULSE 77; TEMP 98.4
--- NOTE | 2018-07-10 18:20 | DS ---
[facility] Detox Discharge Summary Admission Date: 07/08/18 Discharge Date: 07/10/18 - History Present History: Opioid Dependence, Sedative Dependence Additional Comments: PATIENT REPORTS THAT HE HAS A FAMILY EMERGENCY THAT HE MUST ATTEND TO AND DOES NOT WISH TO REMAIN TO COMPLETE DETOX REGIMEN. RISKS OF LEAVING DETOX UNIT AGAINST MEDICAL ADVICE AND PRIOR TO COMPLETION OF DETOX REGIMEN EXPLAINED TO PATIENT. PATIENT ADVISED TO GO IMMEDIATELY TO NEAREST ER SHOULD ANY INTOLERABLE DETOX SYMPTOMS DEVELOP AT ANY TIME. PATIENT VERBALIZED UNDERSTANDING OF ALL INFORMATION / RECOMMENDATIONS PRESENTED TO HIM PRIOR TO DEPARTURE FROM DETOX UNIT. PATIENT LEFT DETOX UNIT IN STABLE MEDICAL CONDITION. Pertinent Past History: Nicotine Dependence, Intravenous Drug User, Weight Loss. - Physical Exam Results Vital Signs: Vital Signs Temperature 98.4 F 07/10/18 17:26 Pulse Rate 77 07/10/18 17:26 Respiratory Rate 18 07/10/18 17:26 Blood Pressure 105/60 07/10/18 17:26 O2 Sat by Pulse Oximetry (%) Pertinent Admission Physical Exam Findings: WITHDRAWAL SYMPTOMS. Laboratory Tests 07/09/18 07/09/18 07/09/18 05:45 05:45 05:45 WBC 5.9 RBC 4.57 Hgb 15.0 Hct 42.2 MCV 92.3 MCH 32.9 MCHC 35.6 RDW 12.7 Plt Count 104 L D MPV 8.7 Sodium 138 Potassium 4.4 Chloride 102 Carbon Dioxide 30 Anion Gap 6 L BUN 19 H Creatinine 1.1 Creat Clearance w eGFR > 60 Random Glucose 102 Calcium 9.0 Total Bilirubin 1.1 H AST 21 ALT 30 Alkaline Phosphatase 68 Total Protein 7.0 Albumin 4.0 RPR Titer Nonreactive LABS NOTED. - Treatment Hospital Course: Detoxed Safely - Medication Discharge Medications: Ambulatory Orders NK [No Known Home Medication] 05/20/15 - Diagnosis (1) IVDU (intravenous drug user) Current Visit: Yes Status: Acute (2) Thrombocytopenia Current Visit: Yes Status: Acute (3) Weight loss Current Visit: Yes Status: Acute (4) Nicotine dependence Current Visit: Yes Status: Acute Qualifiers: Nicotine product type: cigarettes Substance use status: uncomplicated Qualified Code(s): F17.210 - Nicotine dependence, cigarettes, uncomplicated (5) Opioid dependence with withdrawal Current Visit: Yes Status: Acute (6) Uncomplicated sedative, hypnotic or anxiolytic withdrawal Current Visit: Yes Status: Acute - AMA Did Patient Leave Against Medical Advice: Yes (PT. HAS FAMILY EMERGENCY AND DOES NOT WISH TO REMAIN TO COMPLETE DETOX.)
[2018-07-12] MEDS ORDERED: diazePAM 5 MG TABLET PO SCH (10:00)
[2018-07-12] MEDS ORDERED: METHADONE HCL 10 MG TABLET (FOR DETOX USE ONLY) PO SCH (10:00)
[2018-07-13] MEDS ORDERED: METHADONE HCL 5 MG TABLET (FOR DETOX USE ONLY) PO SCH (06:00)
== END 2018-07-10 05:53 | disposition left against medical advice (07) | DRG 894 ==
LOC: YASAS 08:35 → Y6N 10:02
PROVIDERS: ADMIT Surgery; ATTEND Surgery
PROC: HZ2ZZZZ Detoxification Services for Substance Abuse Treatment (ICD-10-PCS; principal; 2018-07-08)
DX: F11.23 Opioid dependence with withdrawal (principal); F13.230 Sedative, hypnotic or anxiolytic dependence with withdrawal, uncomplicated; F17.210 Nicotine dependence, cigarettes, uncomplicated; D69.6 Thrombocytopenia, unspecified; R63.4 Abnormal weight loss; Z68.30 Body mass index [BMI] 30.0-30.9, adult
CPT/HCPCS: 36415; 80053; 85027; 86593; J0735

== ENCOUNTER 2018-07-31 11:10 | Inpatient (IN) | payer OTHER ==
[2018-07-31 11:30] VITALS: BMI 30.5
--- NOTE | 2018-07-31 12:22 | HP ---
COWS - Scale Resting Pulse: 0= [place] 80 or Below Sweatin= Chills/Flushing Restless Observation: 3= Extraneous Movement Pupil Size: 1= Pupils >than Normal Bone or Joint Aches: 2= Severe Diffuse Aches Runny Nose/ Eye Tearin= Runny Nose/Eyes GI Upset > 30mins: 2= Nausea/Diarrhea Tremor Observation: 2= Slight Tremor Visible Yawning Observation: 1= 1-2x During Session Anxiety or Irritability: 2=Irritable/Anxious Goose Flesh Skin: 0=Smooth Skin COWS Score: 16 CIWA Score Nausea/Vomitin Muscle Tremors: 2 Anxiety: 2 Agitation: 2 Paroxysmal Sweats: 1-Minimal Palms Moist Orientation: 0-Oriented Tacttile Disturbances: 1-Very Mild Itch/Numbness Auditory Disturbances: 1-Very Mild Visual Disturbances: 0-None Headache: 2-Mild CIWA-Ar Total Score: 13 - Admission Criteria [facility] Guidelines: Admission for Medically Managed Detox: Requires at least one of the followin. CIWA greater than 12 2. Seizures within the past 24 hours 3. Delirium tremens within the past 24 hours 4. Hallucinations within the past 24 hours 5. Acute intervention needed for co occurring medical disorder 6. Acute intervention needed for co occurring psychiatric disorder 7. Severe withdrawal that cannot be handled at a lower level of care (continued vomiting, continued diarrhea, abnormal vital signs) requiring intravenous medication and/or fluids 8. Patient presents the following: CIWA greater than 12 Admission Criteria Met: Admission criteria met Admission ROS [facility] - [facility] Chief Complaint: I need help to stop using heroin and xanax,valium Allergies/Adverse Reactions: Allergies Allergy/AdvReac Type Severity Reaction Status Date / Time No Known Allergies Allergy Verified 07/31/18 12:09 History of Present Illness: this 33 years old male with heroin,xanax and valium dependence,seeking detox, withdrawal symptom, multiple admissions for detox but keep relapsing last detox 07/08/18 to 07/10/18 not completed due to ill ness in th family nicotine dependence weight loss longest sobriety 6 months plan to go to rehab Exam Limitations: No Limitations - Ebola screening Have you traveled outside of the country in the last 21 days: No Have you had contact with anyone from an Ebola affected area: No Have you been sick,other than usual withdrawal symptoms: No Do you have a fever: No - Review of Systems Constitutional: Chills, Loss of Appetite, Malaise, Night Sweats, Changes in sleep, Weakness, Unintentional Wgt. Loss EENT: reports: Tearing, Nose Congestion Respiratory: reports: No Symptoms reported Cardiac: reports: No Symptoms Reported GI: reports: Diarrhea, Nausea, Vomiting, Abdominal cramping : reports: No Symptoms Reported Musculoskeletal: reports: Back Pain, Muscle Pain Integumentary: reports: Dryness Neuro: reports: Headache, Tremors Endocrine: reports: No Symptoms Reported Hematology: reports: No Symptoms Reported Psychiatric: reports: Judgement Intact, Mood/Affect Appropiate, Orientated x3, other Other Systems: Reviewed and Negative Patient History - Patient Medical History Hx Anemia: No Hx Asthma: No Hx Chronic Obstructive Pulmonary Disease (COPD): No Hx Cancer: No Hx Cardiac Disorders: No Hx Congestive Heart Failure: No Hx Hypertension: No Hx Pacemaker: No HX Cerebrovascular Accident: No Hx Seizures: No Hx Dementia: No Hx Diabetes: No Hx Gastrointestinal Disorders: No Hx Liver Disease: No Hx Genitourinary Disorders: No Hx Sexually Transmitted Disorders: No Hx Renal Disease (ESRD): No Hx Thyroid Disease: No Hx Human Immunodeficiency Virus (HIV): No (01/04 negtive) Hx Hepatitis C: No Hx Depression: No Hx Suicide Attempt: No Hx Bipolar Disorder: No Hx Schizophrenia: No Other Medical History: no sucidal,no homicidal - Patient Surgical History Past Surgical History: Yes Hx Neurologic Surgery: No Hx Cataract Extraction: No Hx Cardiac Surgery: No Hx Lung Surgery: No Hx Breast Surgery: No Hx Breast Biopsy: No Hx Abdominal Surgery: No Hx Appendectomy: No Hx Cholecystectomy: No Hx Genitourinary Surgery: No Hx Section: No Hx Orthopedic Surgery: No Other Surgical History: COLONOSCOPY FOR LOWER GI BLEEDING 2006 Anesthesia Reaction: No - PPD History Previous Implant?: Yes Documented Results: Negative w/proof Implanted On Prior R Admission?: Yes Date: 07/10/18 Results: 0 MM PPD to be Administered?: No - Smoking Cessation Smoking history: Current every day smoker Have you smoked in the past 12 months: Yes Aproximately how many cigarettes per day: 10 Hx Chewing Tobacco Use: No Initiated information on smoking cessation: Yes 'Breaking Loose' booklet given: 07/31/18 - Substance & Tx. History Hx Alcohol Use: Yes Hx Substance Use: Yes Substance Use Type: Heroin, Tranquilizers - Substances Abused Heroin Route: Injection Frequency: Daily Amount used: 1/2 GRAM Age of first use: 28 Date of Last Use: 07/31/18 Alprazolam (Xanax) Route: Oral Frequency: Daily Amount used: 2MG Age of first use: 25 Date of Last Use: 07/30/18 Family Disease History - Family Disease History Family Disease History: Diabetes: Grandparent, Heart Disease: Father (HTN, ALCOHOLIC,NEPHRECTOMY), CA: Mother (lung) Admission Physical Exam [facility] - Vital Signs Vital Signs: Vital Signs - 24 hr 07/31/18 11:28 Temperature 98.3 F Pulse Rate 58 L Respiratory 18 Rate Blood Pressure 104/60 - Physical General Appearance: Yes: Moderate Distress, Tremorous, Irritable, Sweating, Anxious HEENTM: Yes: Normal ENT Inspection, ROHAN, Pharynx Normal Respiratory: Yes: Within Normal Limits, Lungs Clear, Normal Breath Sounds Neck: Yes: Within Normal Limits, Supple, Trachea in good position Breast: Yes: Within Normal Limits Cardiology: Yes: Within Normal Limits, Regular Rhythm, Regular Rate, S1, S2 Abdominal: Yes: Within Normal Limits, Normal Bowel Sounds, Non Tender, Flat, Soft Genitourinary: Yes: Within Normal Limits Back: Yes: Muscle Spasm Musculoskeletal: Yes: full range of Motion, Back pain, Muscle Pain Extremities: Yes: Tremors Neurological: Yes: information management officer II-XII NML intact, Fully Oriented, Alert, Motor Strength 5/5 Integumentary: Yes: Dry, Track Dowell Lymphatic: Yes: Within Normal Limits - Diagnostic (1) Opioid dependence with withdrawal Current Visit: No Status: Acute (2) IVDU (intravenous drug user) Current Visit: No Status: Acute (3) Nicotine dependence Current Visit: No Status: Acute Qualifiers: Nicotine product type: cigarettes Substance use status: uncomplicated Qualified Code(s): F17.210 - Nicotine dependence, cigarettes, uncomplicated (4) Uncomplicated sedative, hypnotic or anxiolytic withdrawal Current Visit: No Status: Acute (5) Weight loss Current Visit: No Status: Acute Cleared for Admission [facility] - Detox or Rehab [facility] Level of Care: Medically Managed Detox Regimen/Protocol: Methadone/Valium S Breath Alcohol Content Breath Alcohol Content: 0 Urine Drug Screen - Results Drug Screen Negative: No Urine Drug Screen Results: OPI-Opiates, BZO-Benzodiazepines, FEN-Fentanyl Inpatient Rehab Admission - Rehab Decision to Admit Inpatient rehab admission?: No
[2018-07-31] MEDS ORDERED: MENTHOL/PHENOL 1 EACH UD MM PRN (12:31)
[2018-07-31] MEDS ORDERED: BISMUTH SUBSALICYLATE 262 MG/15 ML BTL PO PRN (12:31)
[2018-07-31] MEDS ORDERED: ACETAMINOPHEN 325 MG TABLET (FP) PO PRN ×2 (12:31)
[2018-07-31] MEDS ORDERED: MAGNESIUM CITRATE 300 ML BOTTLE PO PRN (12:31)
[2018-07-31] MEDS ORDERED: IBUPROFEN 400 MG TABLET (FP) PO PRN (12:31)
[2018-07-31] MEDS ORDERED: MAG HYDROX/AL HYDROX/SIMETH 30 ML UNIT-DOSE CUP PO PRN (12:31)
[2018-07-31] MEDS ORDERED: MAGNESIUM HYDROX 2400MG/30ML ORAL SUSPENSION 30 ML CUP PO PRN (12:31)
[2018-07-31] MEDS ORDERED: METHADONE HCL 10 MG TABLET (FOR DETOX USE ONLY) PO ONE ×2 (12:45→23:00)
[2018-07-31] MEDS: diazePAM 5 MG TABLET PO SCH ×2 (14:09→22:05)
[2018-07-31] MEDS: diazePAM 5 MG TABLET PO PRN (18:20)
[2018-07-31] MEDS: THIAMINE HCL 100 MG TABLET (FP) PO SCH (22:05)
[2018-07-31 23:31] LABS: URINE APPEARANCE CLOUDY; URINE BILIRUBIN NEGATIVE (<2.0 mg/dL); URINE COLOR YELLOW; URINE GLUCOSE (UA) NEGATIVE (NEGATIVE); URINE KETONE NEGATIVE (NEGATIVE); URINE LEUK ESTERASE NEGATIVE (NEGATIVE); URINE NITRITE NEGATIVE (NEGATIVE); URINE PROTEIN NEGATIVE (NEGATIVE); URINE UROBILINOGEN NEGATIVE mg/dL (0.2-1.0)
[2018-08-01] MEDS: diazePAM 5 MG TABLET PO SCH ×3 (05:13→22:18)
[2018-08-01 09:43] LABS: HEMATOCRIT 39.4 % (35.4-49); HEMOGLOBIN 14.4 GM/dL (11.7-16.9); MCHC 36.5 g/dl (32.0-35.9); MEAN CELL VOLUME 90.3 fl (80-96); MEAN PLT VOLUME 9.3 fl (7.5-11.1); PLATELET COUNT 134 K/MM3 (134-434); RBC 4.37 M/mm3 (4.00-5.60); RDW 12.6 % (11.9-15.9); WHITE BLOOD COUNT 5.4 K/mm3 (4.0-10.0)
[2018-08-01] MEDS ORDERED: METHADONE HCL 10 MG TABLET (FOR DETOX USE ONLY) PO ONE (10:00)
[2018-08-01 10:01] LABS: ALBUMIN 3.8 g/dl (3.4-5.0); ALK PHOS 72 U/L (45-117); ANION GAP 5 MMOL/L (8-16); BILIRUBIN,TOTAL 0.8 mg/dL (0.2-1); BLOOD UREA NITROGEN 15 mg/dL (7-18); CALCIUM 9.7 mg/dL (8.5-10.1); CHLORIDE 102 mmol/L (98-107); CO2 31 mmol/L (21-32); CREATININE 1.1 mg/dL (0.55-1.3); GLUCOSE,RANDOM 101 mg/dL (74-106); POTASSIUM 4.6 mmol/L (3.5-5.1); SGOT/AST 18 U/L (15-37); SGPT/ALT 21 U/L (13-61); SODIUM 139 mmol/L (136-145); TOT PROT 7.1 g/dl (6.4-8.2)
[2018-08-01] MEDS: PRENATAL VITAMINS W/ FOLIC ACID TABLET (FP) PO SCH (10:28)
--- NOTE | 2018-08-01 11:21 | PN ---
[facility] CIWA - CIWA Score Nausea/Vomitin-No Nausea/No Vomiting Muscle Tremors: 4-Moderate,w/Arms Extend Anxiety: 3 Agitation: 3 Paroxysmal Sweats: 3 Orientation: 0-Oriented Tacttile Disturbances: 0-None Auditory Disturbances: 0-None Visual Disturbances: 0-None Headache: 0-None Present CIWA-Ar Total Score: 13 BHS COWS - Scale Resting Pulse: 0= [place] 80 or Below Sweatin=Flushed/Facial Moisture Restless Observation: 1= Difficult to Sit Still Pupil Size: 0= Normal to Room Light Bone or Joint Aches: 0= None Runny Nose/ Eye Tearin= Runny Nose/Eyes GI Upset > 30mins: 1= Stomach Cramp Tremor Observation of Outstretched Hands: 2= Slight Tremor Visible Yawning Observation: 2= >3x During Session Anxiety or Irritability: 2=Irritable/Anxious Goose Flesh Skin: 0=Smooth Skin COWS Score: 12 S Progress Note (SOAP) Subjective: sweats shakes nasal congestion body aches interrupted sleep Objective: 08/01/18 11:25 Vital Signs Temperature 97.0 F L 08/01/18 09:35 Pulse Rate 59 L 08/01/18 09:35 Respiratory Rate 17 08/01/18 09:35 Blood Pressure 106/54 L 08/01/18 09:35 O2 Sat by Pulse Oximetry (%) Laboratory Tests 07/31/18 08/01/18 08/01/18 15:49 05:50 05:50 WBC 5.4 RBC 4.37 Hgb 14.4 Hct 39.4 MCV 90.3 MCH 33.0 MCHC 36.5 H RDW 12.6 Plt Count 134 D MPV 9.3 Sodium 139 Potassium 4.6 Chloride 102 Carbon Dioxide 31 Anion Gap 5 L BUN 15 Creatinine 1.1 Creat Clearance w eGFR 77.09 Random Glucose 101 Calcium 9.7 Total Bilirubin 0.8 AST 18 ALT 21 Alkaline Phosphatase 72 Total Protein 7.1 Albumin 3.8 Urine Color Yellow Urine Appearance Cloudy Urine pH 7.0 Ur Specific [place] 1.019 Urine Protein Negative Urine Glucose (UA) Negative Urine Ketones Negative Urine Blood Negative Urine Nitrite Negative Urine Bilirubin Negative Urine Urobilinogen Negative Ur Leukocyte Esterase Negative aaox3 ambulating no acute distress Assessment: 08/01/18 11:25 withdrawal sx Plan: continue detox increase fluids nasal spray actifed
[2018-08-01] MEDS: diazePAM 5 MG TABLET PO PRN ×3 (11:28→19:38)
[2018-08-01] MEDS ORDERED: SODIUM CHLORIDE NASAL SPRAY 44 ML BOTTLE NS PRN (11:30)
[2018-08-01] MEDS: NICOTINE 21 MG/24 HOURS TOPICAL PATCH TD SCH (13:32)
[2018-08-01] MEDS: P-EPHED 60MG/TRIPROLIDI 2.5MG TABLET PO PRN (13:37)
[2018-08-01] MEDS: METHOCARBAMOL 500 MG TABLET PO PRN (22:18)
[2018-08-01] MEDS: hydrOXYzine PAMOATE 25 MG CAPSULE (FP) PO PRN (22:19)
[2018-08-01] MEDS: cloNIDine HCL 0.1 MG TABLET PO PRN (22:19)
[2018-08-01] MEDS: THIAMINE HCL 100 MG TABLET (FP) PO SCH (22:20)
[2018-08-02] MEDS: P-EPHED 60MG/TRIPROLIDI 2.5MG TABLET PO PRN (05:42)
[2018-08-02] MEDS ORDERED: diazePAM 5 MG TABLET PO ONE (06:00)
[2018-08-02] MEDS: diazePAM 5 MG TABLET PO PRN ×4 (08:02→20:33)
--- NOTE | 2018-08-02 09:40 | PN ---
S CIWA - CIWA Score Nausea/Vomitin Muscle Tremors: 2 Anxiety: 2 Agitation: 1-Slight > Activity Paroxysmal Sweats: 3 Orientation: 0-Oriented Tacttile Disturbances: 1-Very Mild Itch/Numbness Auditory Disturbances: 0-None Visual Disturbances: 0-None Headache: 1-Very Mild CIWA-Ar Total Score: 12 BHS COWS - Scale Resting Pulse: 0= [place] 80 or Below Sweatin= Chills/Flushing Restless Observation: 1= Difficult to Sit Still Pupil Size: 0= Normal to Room Light Bone or Joint Aches: 1= Mild Discomfort Runny Nose/ Eye Tearin= Nasal Congestion GI Upset > 30mins: 1= Stomach Cramp Tremor Observation of Outstretched Hands: 2= Slight Tremor Visible Yawning Observation: 0= None Anxiety or Irritability: 1=Feels Anxious/Irritable Goose Flesh Skin: 3=Piloe[place] COWS Score: 11 S Progress Note (SOAP) Subjective: Chills, interrupted sleep, generalized weakness Objective: 08/02/18 09:39 Vital Signs 08/02/18 08/02/18 03:30 07:23 Temperature 97.9 F Pulse Rate 54 L Respiratory 18 18 Rate Blood Pressure 100/50 L Laboratory Last Values WBC 5.4 K/mm3 (4.0-10.0) 08/01/18 05:50 RBC 4.37 M/mm3 (4.00-5.60) 08/01/18 05:50 Hgb 14.4 GM/dL (11.7-16.9) 08/01/18 05:50 Hct 39.4 % (35.4-49) 08/01/18 05:50 MCV 90.3 fl (80-96) 08/01/18 05:50 MCH 33.0 pg (25.7-33.7) 08/01/18 05:50 MCHC 36.5 g/dl (32.0-35.9) H 08/01/18 05:50 RDW 12.6 % (11.9-15.9) 08/01/18 05:50 Plt Count 134 K/MM3 (134-434) D 08/01/18 05:50 MPV 9.3 fl (7.5-11.1) 08/01/18 05:50 Sodium 139 mmol/L (136-145) 08/01/18 05:50 Potassium 4.6 mmol/L (3.5-5.1) 08/01/18 05:50 Chloride 102 mmol/L (98-107) 08/01/18 05:50 Carbon Dioxide 31 mmol/L (21-32) 08/01/18 05:50 Anion Gap 5 MMOL/L (8-16) L 08/01/18 05:50 BUN 15 mg/dL (7-18) 08/01/18 05:50 Creatinine 1.1 mg/dL (0.55-1.3) 08/01/18 05:50 Creat Clearance w eGFR 77.09 (>60) 08/01/18 05:50 Random Glucose 101 mg/dL (74-106) 08/01/18 05:50 Calcium 9.7 mg/dL (8.5-10.1) 08/01/18 05:50 Total Bilirubin 0.8 mg/dL (0.2-1) 08/01/18 05:50 AST 18 U/L (15-37) 08/01/18 05:50 ALT 21 U/L (13-61) 08/01/18 05:50 Alkaline Phosphatase 72 U/L (45-117) 08/01/18 05:50 Total Protein 7.1 g/dl (6.4-8.2) 08/01/18 05:50 Albumin 3.8 g/dl (3.4-5.0) 08/01/18 05:50 Urine Color Yellow 07/31/18 15:49 Urine Appearance Cloudy 07/31/18 15:49 Urine pH 7.0 (5.0-8.0) 07/31/18 15:49 Ur Specific [place] 1.019 (1.010-1.035) 07/31/18 15:49 Urine Protein Negative (NEGATIVE) 07/31/18 15:49 Urine Glucose (UA) Negative (NEGATIVE) 07/31/18 15:49 Urine Ketones Negative (NEGATIVE) 07/31/18 15:49 Urine Blood Negative (NEGATIVE) 07/31/18 15:49 Urine Nitrite Negative (NEGATIVE) 07/31/18 15:49 Urine Bilirubin Negative (<2.0 mg/dL) 07/31/18 15:49 Urine Urobilinogen Negative mg/dL (0.2-1.0) 07/31/18 15:49 Ur Leukocyte Esterase Negative (NEGATIVE) 07/31/18 15:49 RPR Titer Nonreactive (NONREACTIVE) 08/01/18 05:50 Labs noted, no panic values Assessment: 08/02/18 09:40 Withdrawal sx Plan: Continue detox
[2018-08-02] MEDS ORDERED: METHADONE HCL 10 MG TABLET (FOR DETOX USE ONLY) PO ONE (10:00)
[2018-08-02] MEDS: PRENATAL VITAMINS W/ FOLIC ACID TABLET (FP) PO SCH (10:25)
[2018-08-02] MEDS: NICOTINE 21 MG/24 HOURS TOPICAL PATCH TD SCH (12:21)
[2018-08-02] MEDS: THIAMINE HCL 100 MG TABLET (FP) PO SCH (22:03)
[2018-08-02] MEDS: MELATONIN 5 MG TABLETS PO PRN (22:03)
[2018-08-02] MEDS: METHOCARBAMOL 500 MG TABLET PO PRN (22:03)
[2018-08-02] MEDS: cloNIDine HCL 0.1 MG TABLET PO PRN (22:03)
[2018-08-03] MEDS: diazePAM 5 MG TABLET PO PRN ×2 (06:56→11:07)
[2018-08-03] MEDS ORDERED: METHADONE HCL 10 MG TABLET (FOR DETOX USE ONLY) PO ONE (10:00)
[2018-08-03] MEDS: NICOTINE 21 MG/24 HOURS TOPICAL PATCH TD SCH (10:05)
[2018-08-03] MEDS: PRENATAL VITAMINS W/ FOLIC ACID TABLET (FP) PO SCH (10:05)
[2018-08-03] MEDS: P-EPHED 60MG/TRIPROLIDI 2.5MG TABLET PO PRN (10:06)
--- NOTE | 2018-08-03 10:12 | PN ---
[facility] Progress Note Note: Vital Signs Temperature 97.2 F L 08/03/18 09:25 Pulse Rate 77 08/03/18 09:25 Respiratory Rate 16 08/03/18 09:25 Blood Pressure 96/61 08/03/18 09:25 O2 Sat by Pulse Oximetry (%) Laboratory Last Values WBC 5.4 K/mm3 (4.0-10.0) 08/01/18 05:50 RBC 4.37 M/mm3 (4.00-5.60) 08/01/18 05:50 Hgb 14.4 GM/dL (11.7-16.9) 08/01/18 05:50 Hct 39.4 % (35.4-49) 08/01/18 05:50 MCV 90.3 fl (80-96) 08/01/18 05:50 MCH 33.0 pg (25.7-33.7) 08/01/18 05:50 MCHC 36.5 g/dl (32.0-35.9) H 08/01/18 05:50 RDW 12.6 % (11.9-15.9) 08/01/18 05:50 Plt Count 134 K/MM3 (134-434) D 08/01/18 05:50 MPV 9.3 fl (7.5-11.1) 08/01/18 05:50 Sodium 139 mmol/L (136-145) 08/01/18 05:50 Potassium 4.6 mmol/L (3.5-5.1) 08/01/18 05:50 Chloride 102 mmol/L (98-107) 08/01/18 05:50 Carbon Dioxide 31 mmol/L (21-32) 08/01/18 05:50 Anion Gap 5 MMOL/L (8-16) L 08/01/18 05:50 BUN 15 mg/dL (7-18) 08/01/18 05:50 Creatinine 1.1 mg/dL (0.55-1.3) 08/01/18 05:50 Creat Clearance w eGFR 77.09 (>60) 08/01/18 05:50 Random Glucose 101 mg/dL (74-106) 08/01/18 05:50 Calcium 9.7 mg/dL (8.5-10.1) 08/01/18 05:50 Total Bilirubin 0.8 mg/dL (0.2-1) 08/01/18 05:50 AST 18 U/L (15-37) 08/01/18 05:50 ALT 21 U/L (13-61) 08/01/18 05:50 Alkaline Phosphatase 72 U/L (45-117) 08/01/18 05:50 Total Protein 7.1 g/dl (6.4-8.2) 08/01/18 05:50 Albumin 3.8 g/dl (3.4-5.0) 08/01/18 05:50 Urine Color Yellow 07/31/18 15:49 Urine Appearance Cloudy 07/31/18 15:49 Urine pH 7.0 (5.0-8.0) 07/31/18 15:49 Ur Specific [place] 1.019 (1.010-1.035) 07/31/18 15:49 Urine Protein Negative (NEGATIVE) 07/31/18 15:49 Urine Glucose (UA) Negative (NEGATIVE) 07/31/18 15:49 Urine Ketones Negative (NEGATIVE) 07/31/18 15:49 Urine Blood Negative (NEGATIVE) 07/31/18 15:49 Urine Nitrite Negative (NEGATIVE) 07/31/18 15:49 Urine Bilirubin Negative (<2.0 mg/dL) 07/31/18 15:49 Urine Urobilinogen Negative mg/dL (0.2-1.0) 07/31/18 15:49 Ur Leukocyte Esterase Negative (NEGATIVE) 07/31/18 15:49 RPR Titer Nonreactive (NONREACTIVE) 08/01/18 05:50 c/o of nasal congestion and anxiety Patient Aox3 no acute distress distress, full ROM , ambulating in the unit withdrawal sx continue detox Patient reports will follow up out patient for vivitrol treatment for his after care.
[2018-08-03] MEDS: hydrOXYzine PAMOATE 25 MG CAPSULE (FP) PO PRN (21:52)
[2018-08-03] MEDS: MELATONIN 5 MG TABLETS PO PRN (21:53)
[2018-08-03] MEDS: THIAMINE HCL 100 MG TABLET (FP) PO SCH (21:53)
[2018-08-04] MEDS ORDERED: METHADONE HCL 5 MG TABLET (FOR DETOX USE ONLY) PO ONE (06:00)
[2018-08-04 06:22] VITALS: BP 112/62; PULSE 53; TEMP 96.6
--- NOTE | 2018-08-04 15:06 | DS ---
[facility] Detox Discharge Summary Admission Date: 07/31/18 Discharge Date: 08/04/18 - History Present History: Opioid Dependence, Sedative Dependence Additional Comments: PATIENT GOING HOME AND RETURNING TO WORK. PATIENT ADVISED TO CONSIDER LOCAL 12- STEP / NA OUTPATIENT SUPPORT GROUPS FOR AFTERCARE. PATIENT VERBALIZED UNDERSTANDING OF RECOMMENDATION. PATIENT WAS DISCHARGED FROM DETOX UNIT IN STABLE MEDICAL CONDITION. Pertinent Past History: Intravenous Drug User (I.V.D.U.), Nicotine Dependence, Weight Loss. - Physical Exam Results Vital Signs: Vital Signs Temperature 96.6 F L 08/04/18 06:21 Pulse Rate 53 L 08/04/18 06:21 Respiratory Rate 18 08/04/18 06:21 Blood Pressure 112/62 08/04/18 06:21 O2 Sat by Pulse Oximetry (%) Pertinent Admission Physical Exam Findings: WITHDRAWAL SYMPTOMS. Laboratory Tests 07/31/18 08/01/18 08/01/18 15:49 05:50 05:50 WBC 5.4 RBC 4.37 Hgb 14.4 Hct 39.4 MCV 90.3 MCH 33.0 MCHC 36.5 H RDW 12.6 Plt Count 134 D MPV 9.3 Sodium 139 Potassium 4.6 Chloride 102 Carbon Dioxide 31 Anion Gap 5 L BUN 15 Creatinine 1.1 Creat Clearance w eGFR 77.09 Random Glucose 101 Calcium 9.7 Total Bilirubin 0.8 AST 18 ALT 21 Alkaline Phosphatase 72 Total Protein 7.1 Albumin 3.8 Urine Color Yellow Urine Appearance Cloudy Urine pH 7.0 Ur Specific [place] 1.019 Urine Protein Negative Urine Glucose (UA) Negative Urine Ketones Negative Urine Blood Negative Urine Nitrite Negative Urine Bilirubin Negative Urine Urobilinogen Negative Ur Leukocyte Esterase Negative RPR Titer 08/01/18 05:50 WBC RBC Hgb Hct MCV MCH MCHC RDW Plt Count MPV Sodium Potassium Chloride Carbon Dioxide Anion Gap BUN Creatinine Creat Clearance w eGFR Random Glucose Calcium Total Bilirubin AST ALT Alkaline Phosphatase Total Protein Albumin Urine Color Urine Appearance Urine pH Ur Specific [place] Urine Protein Urine Glucose (UA) Urine Ketones Urine Blood Urine Nitrite Urine Bilirubin Urine Urobilinogen Ur Leukocyte Esterase RPR Titer Nonreactive LABS NOTED. - Treatment Hospital Course: Detox Protocol Followed, Detoxed Safely, Responded well, Discharged Condition Good Patient has Accepted a Rehab Referral to: PT. ADVISED TO CONSIDER LOCAL 12-STEP / NA OUTPATIENT SUPPORT GROUPS. - Medication Discharge Medications: Ambulatory Orders NK [No Known Home Medication] 05/20/15 - Diagnosis (1) IVDU (intravenous drug user) Status: Acute (2) Nicotine dependence Status: Acute Qualifiers: Nicotine product type: cigarettes Substance use status: uncomplicated Qualified Code(s): F17.210 - Nicotine dependence, cigarettes, uncomplicated (3) Opioid dependence with withdrawal Status: Acute (4) Uncomplicated sedative, hypnotic or anxiolytic withdrawal Status: Acute (5) Weight loss Status: Acute - AMA Did Patient Leave Against Medical Advice: No
== END 2018-08-04 06:30 | disposition home or self-care (01) | DRG 897 ==
LOC: YASAS 11:10 → Y6N 12:29
PROVIDERS: ADMIT Surgery; ATTEND Surgery
PROC: HZ2ZZZZ Detoxification Services for Substance Abuse Treatment (ICD-10-PCS; principal; 2018-07-31)
DX: F11.23 Opioid dependence with withdrawal (principal); F13.230 Sedative, hypnotic or anxiolytic dependence with withdrawal, uncomplicated; F17.213 Nicotine dependence, cigarettes, with withdrawal; Z68.30 Body mass index [BMI] 30.0-30.9, adult
CPT/HCPCS: 36415; 80053; 81003; 85027; 86593; J0735